=== PATIENT | female | born 1995 | race Caucasian/White ===

== ENCOUNTER 2018-05-16 06:30 | Emergency (ER) | payer OTHER ==
--- NOTE | 2018-05-16 07:26 | ED Physician Documentation ---
PD HPI UPPER EXT INJURY - Stated complaint Stated Complaint: L ARM SWELLING - Chief complaint Chief Complaint: Ext Problem - History obtained from History obtained from: Patient - History of Present Illness Location: Left, Arm Type of injury: Other (surgery) Timing - onset: Enter time (1000), Yesterday Timing - duration: Days (1) Timing - details: Abrupt onset, Still present Improved by: Rest, Immobilization Worsened by: Moving, Palpating Associated symptoms: Numbness, Swelling, Discolored. 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 She went back to work immediately and today she is in the emergency department with numbness to the fourth and fifth digits on the left hand swelling of the arm itself and pain and discoloration. 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 Review of Systems Constitutional: denies: Fever Eyes: denies: Decreased vision Ears: denies: Ear pain Nose: denies: Congestion Throat: denies: Sore throat Respiratory: denies: Cough GI: denies: Abdominal Pain, Nausea, Vomiting, Constipation, Diarrhea Musculoskeletal: reports: Extremity pain, Extremity swelling Neurologic: reports: Numbness. denies: Generalized weakness, Focal weakness PD PAST MEDICAL HISTORY - Allergies Allergies/Adverse Reactions: Allergies Allergy/AdvReac Type Severity Reaction Status Date / Time No Known Drug Allergies Allergy Verified 05/16/18 06:42 PD ED PE NORMAL - Vitals Vital signs reviewed: Yes (normal ) - General General: Alert and oriented X 3, No acute distress, Well developed/nourished - HEENT HEENT: Atraumatic, PERRL, EOMI - Respiratory Respiratory: No respiratory distress - Derm Derm: Normal color, Warm and dry, No rash - Extremities Extremities: Other (There is ecchymosis and tenderness with swelling to the left arm over the medial surface. The implan is palpable and the area is tender. There is no erythema or lymphangitic streaking or drainage. ) - Neuro Neuro: Alert and oriented X 3, family member caretaker 2-12 intact, No motor deficit, Other (There is subjective numbness to the 4th and 5th digits on the left hand and there is swelling to the ulnar notch on the left. ) Eye Opening: Spontaneous Motor: Obeys Commands Verbal: Oriented GCS Score: 15 - Psych Psych: Normal mood, Normal affect Results - Vitals Vitals: Vital Signs - 24 hr 05/16/18 06:37 Temperature 36.3 C L Heart Rate 69 Respiratory 16 Rate Blood Pressure 121/78 O2 Saturation 100 Oxygen O2 Source Room air PD MEDICAL DECISION MAKING - ED course Complexity details: considered differential, d/w patient ED course: 23-year-old female who had an implan put in yesterday went right back to work, she has an excessive amount of swelling and she does have some numbness in the distribution of the ulnar nerve. She is administered dexamethasone and placed into a sling and given a note for work. Departure - Departure Disposition: 01 Home, Self Care Clinical Impression: Postoperative wound hematoma Condition: Stable Instructions: ED Wound Check Post Op No Infec Follow-Up: V[facility] Mauricio [Provider Group] Forms: Activity restrictions
[2018-05-16] MEDS ORDERED: DEXAMETHASONE 10 MG/ML VIAL PO STA (07:27)
[2018-05-16 07:40] VITALS: BP 124/90
== END 2018-05-16 07:42 | disposition home or self-care (01) ==
LOC: ED 06:30
DX: L76.32 Postprocedural hematoma of skin and subcutaneous tissue following other procedure (principal)
CPT/HCPCS: 99283